=== PATIENT | female | born 1985 | race Caucasian/White ===

== ENCOUNTER 2024-08-06 15:02 | Outpatient (CLI) | payer BC | END 2024-08-06 15:03 | disposition home or self-care (01) | LOC: CSHCP 15:02 | PROVIDERS: ATTEND Student in an Organized Health Care Education/Training Program | DX: R76.8 Other specified abnormal immunological findings in serum (principal); M34.9 Systemic sclerosis, unspecified; I73.00 Raynaud's syndrome without gangrene | CPT/HCPCS: 94010; 94726; 94729; 94760 ==